=== PATIENT | female | born 1990 | race Caucasian/White ===

== ENCOUNTER 2016-10-20 14:49 | Emergency (ER) | payer MEDICAID ==
[2016-10-20 15:09] VITALS: BP 131/67; PULSE 78; RESP 16; TEMP 97.7; O2SAT 100
[2016-10-20] MEDS ORDERED: Sodium Chloride 0.9% 1,000 ML IV STA (15:33)
--- NOTE | 2016-10-20 15:40 | ED PDOC ---
HPI: Back Chief Complaint (Provider): Lower back pain History Per: Patient History/Exam Limitations: no limitations Onset/Duration Of Symptoms: Days Current Symptoms Are (Timing): Still Present Quality Of Discomfort: "Pain" Severity: Severe Pain Scale Rating Of: 10 Associated Symptoms: Other (nausea) Exacerbating Factor(s): Nothing Additional Complaint(s): 26 y/o F with no significant PMHx presents to ED c/o B/L lower back pain for the past week associated with nausea. Patient had 1 diarrhea 4 days ago that resolved. Pain is 10/10, constant, improves with ibuprofen PO. Patient states that for the past 2 days she has been noticing small amount of blood after urination when she wipes out herself and sometimes yellowish or brownish non smelling discharge. Patient had a spontaneous on 09/12/16, bleeding stopped and then 1 week ago she had a menstrual period that lasted for 3 days. Denies dysuria, headaches, dizziness, CP, SOB, palpitations, abd pain, vomiting , radiation of the pain to the legs or LE paresthesias. Admits nausea. - Risk Factors AAA Risk Factors: Neg: Older Than 49 Years Of Age, Hypertension, Connective Tissue Disease, Marfan's Syndrome, Jhonathan-Danlos Syndrome, Prior AAA, 1st Degree Relative/s With AAA <Papa Soares - Last Filed: 10/20/16 17:59> <Trey Jackson - Last Filed: 10/20/16 18:57> Time Seen by Provider: 10/20/16 15:29 Chief Complaint (Nursing): Back Pain Past Medical History Reviewed: Nursing Documentation, Vital Signs Vital Signs: Last Vital Signs Temp 97.7 F 10/20/16 15:04 Pulse 78 10/20/16 15:04 Resp 16 10/20/16 15:04 BP 131/67 10/20/16 15:04 Pulse Ox 100 10/20/16 15:04 - Medical History PMH: No Chronic Diseases - Surgical History Surgical History: No Surg Hx - Family History Family History: States: No Known Family Hx - Social History Current smoker - smoking cessation education provided: No Alcohol: None Drugs: Denies <Papa Soares - Last Filed: 10/20/16 17:59> Vital Signs: Last Vital Signs Temp 97.7 F 10/20/16 15:04 Pulse 78 10/20/16 15:04 Resp 16 10/20/16 15:04 BP 131/67 10/20/16 15:04 Pulse Ox 100 10/20/16 18:00 <Trey Jackson - Last Filed: 10/20/16 18:57> - Home Medications Home Medications: Ambulatory Orders Medication Instructions Recorded Ibuprofen [Motrin] 600 mg PO TID 7 Days 10/20/16 Nitrofurantoin Macrocrystals 100 mg PO BID #10 cap 10/20/16 [Macrobid] - Allergies Allergies/Adverse Reactions: Allergies Allergy/AdvReac Type Severity Reaction Status Date / Time No Known Allergies Allergy Verified 10/20/16 15:09 Supervising Attending Note - Supervising Attending Note The Documented history was done by the: Physician Java Sql Developer The documented physical exam was done by the: Physician Java Sql Developer The documented procedures were done by the: Physician Java Sql Developer - Attestation: I have personally seen and examined this patient.: Yes I have fully participated in the care of the patient.: Yes I have reviewed all pertinent clinical information: Yes - Notes: Notes:: Back pain upper mid back laterally b/l. Freq of urination. ?blood in urine. No abd pain, chest pain, dyspnea. No new food or drinks. No numbness, tingles , incontinence, constipation. <Trey Jackson M - Last Filed: 10/20/16 18:57> Review of Systems ROS Statement: Except As Marked, All Systems Reviewed And Found Negative Gastrointestinal: Positive for: Nausea Genitourinary Female: Positive for: Frequency, Vaginal Discharge, Vaginal Bleeding Musculoskeletal: Positive for: Back Pain <Papa Soares - Last Filed: 10/20/16 17:59> ROS Statement: Except As Marked, All Systems Reviewed And Found Negative Genitourinary Female: Positive for: Frequency. Negative for: Vaginal Discharge , Vaginal Bleeding Musculoskeletal: Positive for: Back Pain <Trey Jackson - Last Filed: 10/20/16 18:57> Physical Exam - Reviewed Nursing Documentation Reviewed: Yes Vital Signs Reviewed: Yes - Physical Exam Appears: Positive for: Non-toxic, No Acute Distress Skin: Positive for: Normal Color, Warm Eye Exam: Positive for: EOMI, PERRL Cardiovascular/Chest: Positive for: Regular Rate, Rhythm. Negative for: Gallop Respiratory: Positive for: Normal Breath Sounds. Negative for: Crackles, Rales , Wheezing, Respiratory Distress Gastrointestinal/Abdominal: Positive for: Soft, Tenderness (mild suprapubic). Negative for: Mass, Distended, Guarding Back: Positive for: L CVA Tenderness (questionable), R CVA Tenderness ( questionable). Negative for: Vertebral Tenderness Extremity: Negative for: Tenderness, Pedal Edema, Calf Tenderness Neurologic/Psych: Positive for: Alert, Oriented. Negative for: Motor/Sensory Deficits <Papa Soares - Last Filed: 10/20/16 17:59> - Reviewed Nursing Documentation Reviewed: Yes - Physical Exam Gastrointestinal/Abdominal: Positive for: Soft. Negative for: Tenderness Back: Positive for: L CVA Tenderness (questionable mild), R CVA Tenderness ( questionable mild) <Trey Jackson - Last Filed: 10/20/16 18:57> - Laboratory Results Result Diagrams: 10/20/16 16:09 10/20/16 16:09 - ECG O2 Sat by Pulse Oximetry: 100 <Papa Soares - Last Filed: 10/20/16 17:59> - Laboratory Results Result Diagrams: 10/20/16 16:09 10/20/16 16:09 Interpretation Of Abn Labs: urine wbc - ECG Pulse Ox Interpretation: Normal - Progress ED Course And Treament: 1837: Stable. AAOx3. Pain free. Tolerated Po. uti TX. Fu with pcp. <Trey Jackson - Last Filed: 10/20/16 18:57> Medical Decision Making Medical Decision Makin26 y/o F with no significant PMHx presents for B/L lower back pain and urinary frequency Pos UTI test UA and UCx CBC/CMP Toradol IV Zofran IV IV normal saline <Papa Soares - Last Filed: 10/20/16 17:59> Disposition - Disposition Disposition Time: 18:00 <Papa Soares - Last Filed: 10/20/16 17:59> - Patient ED Disposition Is Patient to be Admitted: No - Disposition Disposition: Routine/Home <Trey Jackson - Last Filed: 10/20/16 18:57> - Clinical Impression Clinical Impression: UTI (urinary tract infection), Back pain - Disposition Referrals: Andrés Guardado MD [Staff Provider] - 10/24/16 Condition: STABLE Additional Instructions: Return if not better in 3 days. Prescriptions: Ibuprofen [Motrin] 600 mg PO TID 7 Days Nitrofurantoin Macrocrystals [Macrobid] 100 mg PO BID #10 cap Instructions: Urinary Tract Infection in Women (ED), Back Pain (ED) Forms: [facility] ([place]ian)
[2016-10-20 16:14] LABS: BASO # 0.1 K/uL (0.0-0.2); BASO % 0.8 % (0.0-2.0); EOS # 0.1 K/uL (0.0-0.7); EOS % 1.5 % (0.0-4.0); HEMOGLOBIN 12.9 g/dL (12.0-16.0); LYMPH # 1.9 K/uL (1.0-4.3); LYMPH % 20.8 % (20.0-40.0); MEAN CELL VOLUME 83.3 fl (81.0-99.0); MEAN CORPUSCULAR HEMOGLOBIN 26.4 pg (27.0-31.0); MEAN CORPUSCULAR HGB CONC 31.6 g/dL (33.0-37.0); MONO # 0.6 K/uL (0.0-0.8); NEUT # 6.5 K/uL (1.8-7.0); NEUT % 69.9 % (50.0-75.0); RBC 4.88 Mil/uL (3.80-5.20); RED CELL DISTRIBUTION WIDTH 13.4 % (11.5-14.5); WHITE BLOOD COUNT 9.3 K/uL (4.8-10.8)
[2016-10-20 16:25] LABS: ALB/GLOB RATIO 1.3 (1.0-2.1); ALBUMIN 4.7 g/dL (3.5-5.0); ALT/SGPT 22 U/L (9-52); AST/SGOT 50 U/L (14-36); BLOOD UREA NITROGEN 16 mg/dl (7-17); CALCIUM 8.9 mg/dL (8.4-10.2); GFR AFRICAN-AMERICAN > 60; GFR NON-AFRICAN AMERICAN > 60
[2016-10-20 17:58] LABS: SQUAMOUS EPITHIAL 7 /hpf (0-5); URINE BILIRUBIN NEGATIVE (NEGATIVE); URINE BLOOD NEGATIVE (NEGATIVE); URINE CLARITY CLOUDY (Clear); URINE COLOR YELLOW (YELLOW); URINE GLUCOSE (UA) NEG (Normal); URINE LEUKOCYTE ESTERASE LARGE Leu/uL (Negative); URINE NITRATE NEGATIVE (NEGATIVE); URINE PROTEIN NEGATIVE (NEGATIVE); URINE UROBILINOGEN 0.2-1.0 mg/dL (0.2-1.0)
== END 2016-10-20 18:40 | disposition home or self-care (01) ==
LOC: H.ER 14:49
DX: N39.0 Urinary tract infection, site not specified (principal); I10 Essential (primary) hypertension